=== PATIENT | male | born 1995 | race African-American/Black ===

== ENCOUNTER 2017-11-17 04:18 | Inpatient (IN) | payer OTHER, SELFPAY ==
[2017-11-17] MEDS ORDERED: Senokot 8.6 MG TAB PO PRN (08:52)
[2017-11-17] MEDS ORDERED: Loratadine 10 MG TAB PO PRN (08:52)
[2017-11-17] MEDS ORDERED: Diabetic Tussin 200 MG/10 ML UDCUP PO PRN (08:52)
[2017-11-17] MEDS ORDERED: Acetaminophen 325 MG TAB PO PRN (08:52)
[2017-11-17] MEDS ORDERED: Ondansetron HCl/PF 4 MG/2 ML Vial IVP PRN (08:52)
[2017-11-17] MEDS ORDERED: Loperamide HCl 2 MG CAP PO PRN (08:52)
[2017-11-17] MEDS ORDERED: Zolpidem Tartrate 5 MG TAB PO PRN (08:52)
[2017-11-17] MEDS ORDERED: hydrALAZINE 20 MG/ML VIAL SLOW IVP PRN (08:52)
[2017-11-17] MEDS ORDERED: Artificial Tears 18 DROP/0.9 ML EA EYE PRN (08:52)
[2017-11-17] MEDS ORDERED: Sodium Chloride 0.65% Nasal 44 ML BOT EA NARE PRN (08:52)
[2017-11-17] MEDS ORDERED: Ondansetron ODT 4 MG TAB PO PRN (08:52)
[2017-11-17] MEDS ORDERED: HYDROcodone/Acetaminophen 5/325 mg Tablet PO PRN (08:52)
[2017-11-17] MEDS ORDERED: Eucerin (Mineral Oil/Petrolatum,White) 30 gm Jar TOP PRN (08:52)
[2017-11-17] MEDS ORDERED: Chloraseptic Spray 180 ml Bottle PO PRN (08:52)
[2017-11-17] MEDS ORDERED: Albuterol Sulfate 2.5 mg/3 ml Neb NEB PRN (08:52)
[2017-11-17] MEDS ORDERED: Mag-Al 1200 mg/1200 mg/30 ML UDCUP PO PRN (08:52)
[2017-11-17] MEDS ORDERED: Milk Of Magnesia 30 ML UDCUP PO PRN (08:52)
[2017-11-17] MEDS ORDERED: Cefepime 2 GM in Sodium Chloride 0.9% 100 ML IVPB SCH (09:00)
[2017-11-17] MEDS ORDERED: Famotidine 20 MG TAB PO SCH (09:00)
[2017-11-17 09:52] VITALS: BMI 19.5
[2017-11-17] MEDS ORDERED: Cefepime 2 GM, Syringe 2.5 ML in Sterile Water 10 ML SLOW IVP SCH (10:00)
[2017-11-17] MEDS: Enoxaparin Sodium 40 MG/0.4 ML SYRINGE SC SCH (10:30)
[2017-11-17] MEDS: Sodium Chloride 0.9% 1,000 ML IV SCH (10:31)
[2017-11-17] MEDS ORDERED: Lidocaine 2% Jelly 5 ML TUBE TOP SCH (10:45)
[2017-11-17 10:53] LABS: #Lymphocytes 1.5 thou/uL (1.20-3.40); #Monocytes 0.1 thou/uL (0.11-0.59); #Neutrophils 5.8 thou/uL (1.40-6.50); %Basophils 0.2 % (0.0-1.0); %Eosinophils 0.2 % (0.0-10.0); %Lymphocytes 20.5 % (21.0-51.0); %Monocytes 1.4 % (0.0-10.0); %Neutrophils 77.7 % (42.0-75.0); Band 1 % (5-11); Hemoglobin 15.8 g/dL (14.0-18.0); Lymphocytes 16 % (21-51); MDiff Complete? YES; Macrocytosis SLIGHT = 6-15 cells (100X) (0-5/hpf); Mean Corpuscular HGB CONC 33.1 g/dL (32.0-36.0); Mean Corpuscular Hemoglobin 35.7 pg (27.0-31.0); Mean Platelet Volume 8.1 fL (7.4-10.4); Monocytes 2 % (0-10); Neutrophil 72 % (42-75); PLT Morphology Comment Appears Adequate; Platelet Count 214 thou/uL (130-400); RBC Distribution Width 13.9 % (11.5-14.5); Reactive Lymphocytes 9 % (0-10); Red Blood Cell (RBC) Count 4.43 mill/uL (4.70-6.10); White Blood Cell (WBC) Count 7.5 thou/uL (4.8-10.8)
[2017-11-17 11:35] LABS: ALT (SGPT) 21 U/L (8-55); AST (SGOT) 27 U/L (5-34); Albumin 4.4 g/dL (3.5-5.0); Alkaline Phosphatase 81 U/L (40-150); Anion Gap 12 mmol/L (10-20); BUN (Urea Nitrogen) 12 mg/dL (8.9-20.6); Bilirubin, Total 0.5 mg/dL (0.2-1.2); Calc. Creatinine Clearance 111 mL/min (70-130); Calcium 10.1 mg/dL (7.8-10.44); Carbon Dioxide 36 mmol/L (22-29); Chloride 97 mmol/L (98-107); Estimated GFR-MDRD Greater than 90; Globulin 3.9 g/dL (2.4-3.5); Glucose 113 mg/dL (70-105); Potassium 5.3 mmol/L (3.5-5.1); Protein, Total 8.3 g/dL (6.0-8.3); Sodium 140 mmol/L (136-145)
[2017-11-17] MEDS ORDERED: FLU VACC QS2017-18 36 mo. & older 0.5 ML SYRINGE IM ONE (12:00)
[2017-11-17] MEDS ORDERED: Fentanyl 100 MCG/2 ML VIAL ONE (12:14)
[2017-11-17] MEDS ORDERED: Propofol 500 MG/50 ML VIAL ONE (12:14)
[2017-11-17] MEDS ORDERED: EPINEPHrine 1 MG/ML AMP ONE (12:17)
[2017-11-17] MEDS ORDERED: Lidocaine 4% Topical Sol 50 ML BOT ONE ×2 (12:18→12:43)
[2017-11-17] MEDS ORDERED: Midazolam HCl 5 mg/5 ml Vial ONE (12:27)
[2017-11-17] MEDS ORDERED: Ketamine 50 MG/ML VIAL ONE (12:27)
[2017-11-17] MEDS ORDERED: Thrombin 20 THOU.UNITS/20 ML VIAL ONE (13:45)
[2017-11-17] MEDS ORDERED: Thrombin 5000 UNITS/5 ML VIAL ONE (13:46)
[2017-11-17] MEDS ORDERED: Multivit, Adult Inj 10 ML VIAL IV SCH (14:00)
[2017-11-17] MEDS ORDERED: Multivitamins, Adult 10 ML in Sodium Chloride 0.9% 500 ML IV SCH ×2 (14:15)
[2017-11-17] MEDS ORDERED: SUGAMMADEX SODIUM 200 MG/2 ML VIAL ONE (14:23)
[2017-11-17] MEDS ORDERED: Naloxone HCl 0.4 mg/ml Vial ONE ×2 (14:29→15:07)
--- NOTE | 2017-11-17 14:43 | HP ---
PRIMARY CARE PHYSICIAN: Patient is a city call admission. The patient is transferred from [facility] for further evaluation. REASON FOR ADMISSION: Transfer from [facility] for pneumonia, papillary tumor of v ocal cord. HISTORY OF PRESENT ILLNESS: A 22-year-old -[place] male who has history of vocal cord papill madiha tumor as well as asthma. He went to emergency room there for generalized fatigue, wheezing, weak ness, shortness of breath, cough with productive yellowish-white sputum. These symptoms are ongoing slowly for about a month, but lately for the last one week, the patient's symptomatology has gotten w orse. He feels chest tightness. He feels shortness of breath. He feels wheezing. He feels subject delilah fever, but no chills. Denies any body ache. He does have nasal congestion, but no sore throat. When he went to [facility], he was slightly hypoxic. The patient was otherw ise hemodynamically stable. His saturation was 91%. He had routine blood tests there which were com pletely unremarkable including CBC, BMP, and LFT. His chest x-ray showed rounded opacity of left pos terior mid lung zone and there was concern of underlying pneumonia. Subsequently, the patient had CT neck, soft tissue, and CT chest which showed soft tissue mass on both vocal cords causing narrowing of laryngeal airway and CT chest showed multiple cavitary nodule on both lungs with left lower lobe c onsolidation. The patient denies any recent travel. He denies any sick exposure. The patient was transferred to our hospital. At that time, the patient was tachycardic. He was satu rating normal on room air. Site Administrator and ENT were consulted. The patient was subsequently admit chip in IICU. When I saw this patient at that time, patient was comfortable, but he was complaining that he has dif ficulty talking sometimes and he has difficulty phonating as well and that for the last month, the pa tient is gradually getting worse. The patient has a history of papilloma and he requires several maryanne es papilloma removed since age of 4 years. REVIEW OF SYSTEMS: The following complete review of systems was negative, unless otherwise mentioned in the HPI or below: Constitutional: Weight loss or gain, ability to conduct usual activities. Skin: Rash, itching. Eyes: Double vision, pain. ENT/Mouth: Nose bleeding, neck stiffness, pain, tenderness. Cardiovascular: Palpitations, dyspnea on exertion, orthopnea. Respiratory: Shortness of breath, wheezing, cough, hemoptysis, fever or night sweats. Gastrointestinal: Poor appetite, abdominal pain, heartburn, nausea, vomiting, constipation, or diarr hea. Genitourinary: Urgency, frequency, dysuria, nocturia. Musculoskeletal: Pain, swelling. Neurologic/Psychiatric: Anxiety, depression. Allergy/Immunologic: Skin rash, bleeding tendency. Please see my HPI for pertinent positives and negatives. All other review of systems reviewed and ne gative except as mentioned in the HPI. ALLERGIES: No known drug allergies. CURRENT HOME MEDICATIONS: The patient is not taking prescribed or non-prescribed medication. 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 PAST SURGICAL HISTORY: Several times papilloma tumor removed from vocal cord. PAST PSYCHIATRIC HISTORY: Reviewed and negative. SOCIAL HISTORY: Patient drinks alcohol almost every week, but he denies any smoking. He denies any other illicit drug abuse. He lives by himself. FAMILY HISTORY: No strong family history of premature coronary artery disease, stroke, or cancer. EMERGENCY ROOM COURSE: Reviewed. PHYSICAL EXAMINATION: VITAL SIGNS: On arrival, blood pressure 137/85, pulse 110, respiratory rate 20, temperature 97.8, sa turation 94% on room air, weight 65.7 kg. GENERAL: Patient is currently alert, awake on room air. No obvious acute distress, able to talk in full sentences. HEENT: Head is normocephalic and atraumatic. Eyes: Pupils are round and reactive to light. Extrao cular muscles are intact. ENT: Oropharynx within normal limits. Moist mucous membranes. No oral l esions. No pharyngeal erythema, no exudate. NECK: Supple. No JVD, no thyromegaly, no carotid bruit, no meningeal signs of irritation. LUNGS: Coarse breath sounds, but no rhonchi, no wheeze. No accessory muscles of respiration. No in tercostal retractions. CARDIAC: S1 and S2 regular, tachycardia. No murmur, no gallop, no rub. ABDOMEN: Soft, bowel sounds present. Nontender, nondistended. No organomegaly. No mass. No supra pubic tenderness. BACK: Unremarkable, no CVA tenderness. EXTREMITIES: Upper extremities: Passive movement of all joints are normal. Lower extremities: No edema. Good peripheral pulsation. SKIN: No skin rash. HEMATOLOGICAL: No lymphadenopathy. PSYCHIATRIC: Normal affect. SIGNIFICANT LABS: Blood tests done at [facility] completely reviewed including CT scan. The patient has a 2.4 cm thin walled cavitary focus in the right upper lobe variable size thin -walled cavitary foci within right upper lobe and left lower lobe as well as the right middle lobe an d right lower lobe, bronchiectasis and bronchial wall thickening in left lower lobe, left lower lobe consolidation. The patient also has irregular soft tissue mass in both vocal cords. CBC: WBC 7.5, hemoglobin 15.8, MCV 108, platelets 214 with bandemia. BMP: Sodium 140, potassium 5. 3, chloride 97, carbon dioxide 36, anion gap 12, BUN 12, creatinine 0.93, glucose 113, calcium 10.1. LFT: AST 27, ALT 21, alkaline phosphatase 81, albumin 4.4. ASSESSMENT AND PLAN: 1. Bilateral vocal cord papillary tumor. At this point, the patient is having dyspnea, most likely related with that. ENT doctor is consulted and further decisions will defer to them. 2. Bilateral cavitary pulmonary nodule, multiple. Differential diagnoses is infectious etiology, We gener's granulomatosis, fungal infection. Pulmonary will be consulted and they will decide whether t his patient need any bronchoscopy or any further evaluation or not. Considering infection, we will s tart broad spectrum antibiotic therapy. 3. Left lower lobe pneumonia/bronchiectasis. The patient will be started on broad spectrum antibiot ic therapy with cefepime, Levaquin, or vancomycin if pulmonary okay. Doubt this patient has any infe ction, most likely related with noninfectious process, but we will closely monitor. 4. Asthma. The patient will be given albuterol nebulization therapy. 5. Macrocytosis. The patient will be given multivitamin therapy IV along with IV fluid. 6. Deep venous thrombosis prophylaxis. SCD boots. Lovenox 40 mg subcutaneously daily. 7. Gastrointestinal prophylaxis. Pepcid 20 mg IV b.i.d. 8. Code status: The patient is FULL CODE. The patient does not have a surrogate decision maker. Disposition plan based on clinical course. We are expecting patient's stay in hospital more than 2 m idnights. Plan of care discussed with the patient in detail.
--- NOTE | 2017-11-17 15:04 | CON ---
DATE OF CONSULTATION: 11/17/2017 SERVICE: Pulmonary Medicine. REASON FOR CONSULTATION: ICU patient. HISTORY OF PRESENT ILLNESS: The patient is a 22-year-old -Monegas[place] male with past medical his tory significant for recurrent papillomas of the laryngeal region. He has had a couple of operations in the past, because of upper airway issues. His last surgery was multiple years ago. He had progr essive increasing difficulty with breathing. 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 All o f his other physicians are in the [place] area that previously took care of him. Because he was in [facility] and is having difficulty and there was no ability to transfer him to [place], he was subseq uently sent here. He was tucked into the ICU overnight. There were some films that were done in the outside facility and we have the reports for review, but none of the images were sent because the rner was down. The patient other than his stridor, and difficulty with moving air, is otherwise with out any symptoms of fevers, chills, nausea, vomiting, cough or sputum production. He is otherwise in his usual state of health and has no specific complaints. He does have retractions with inspiration and has prolonged expiratory phase. I had him sniff aggressively and there was no significant impro vement in his inspiratory phase. PAST MEDICAL HISTORY: 1. Recurrent papillomas of the larynx. 2. Asthma. PAST SURGICAL HISTORY: Laryngeal procedures for excision of papillomas, recurrent. SOCIAL HISTORY: Negative for significant alcohol, tobacco or illicit drug use. He has no exposure t o chemicals, doses, asbestos or tuberculosis. FAMILY HISTORY: Noncontributory. ALLERGIES: No known drug allergies. MEDICATIONS: List of his inpatient medications were reviewed. Couple of small updates were made. REVIEW OF SYSTEMS: General, head, ears, eyes, nose, throat, cardiovascular, respiratory, GI, , mus culoskeletal, neurologic and skin is negative except as mentioned in the HPI. PHYSICAL EXAMINATION: VITAL SIGNS: Afebrile, pulse 106, blood pressure 112/80, respirations 23, saturation 100% on 2 liter s nasal cannula. GENERAL: Patient is awake, alert, in no apparent distress. LUNGS: He has a prolonged expiratory and inspiratory phase. Aggressive sniffing does not improve hi s inspiratory phase significantly. He is not moving enough air to appreciate adventitious sounds, th ough I get the feeling that not present. HEART: Normal rate, regular. ABDOMEN: Soft, nontender, nondistended. Bowel sounds are positive. MUSCULOSKELETAL: No cyanosis or clubbing. There is no pitting in the bilateral lower extremities. IMAGING: CT reports were reviewed of the neck, and of the chest. There are multiple cavitary lesion s, mass-like lesions, and pulmonary nodules present throughout the bilateral lung juarez. The CT of the neck was reviewed and they did not specifically note any significant growths in the laryngeal reg ion. ASSESSMENT: 1. Stridor. 2. History of papilloma tumors that required previous surgical interventions. 3. Abnormal CT of the chest including pulmonary cavities, nodules, masses, and cystic lesions. 4. History of asthma without current exacerbation. PLAN: ENT consultation has been placed. The patient will likely need to undergo an evaluation of th e larynx in the operating room. The CT of the neck did not specifically demonstrate any soft tissue growths in this region, so vocal cord dysfunction is a distinct possibility, but I feel a cautious ap proach is still indicated. CPAP will be initiated to see if this improves the air movement. Once hi s upper airway issue gets evaluated and stabilized, the patient can be considered for workup of the m ultiple pulmonary findings. I would likely defer this to the outpatient setting. 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 Pulmonary and Critical Care will continue to follow.
[2017-11-17] MEDS ORDERED: Propofol 200 MG/20 ML VIAL ONE (15:07)
[2017-11-17] MEDS ORDERED: Ondansetron HCl/PF 4 MG/2 ML Vial ONE (15:07)
[2017-11-17] MEDS ORDERED: Succinylcholine Chloride 20 MG/ML 10 ml SYRINGE FS ONE (15:07)
[2017-11-17] MEDS ORDERED: PHENYLEPHRINE-NS 100 MCG/ML 10 ML SYRINGE ONE (15:07)
[2017-11-17] MEDS ORDERED: Lidocaine 1% PF 5 ML VIAL ONE (15:07)
[2017-11-17] MEDS ORDERED: Glycopyrrolate 0.2 MG/ML 5 ML SYRINGE ONE (15:07)
--- NOTE | 2017-11-17 16:31 | OP ---
PREOPERATIVE DIAGNOSES: 1. Obstructive laryngeal lesion. 2. Personal history of recurrent respiratory papillomatosis. POSTOPERATIVE DIAGNOSIS: Recurrent respiratory papillomas. PROCEDURES PERFORMED: 1. Microsuspension laryngoscopy with biopsy and microdebridor destruction of removal of obstructing laryngeal lesion. 2. Rigid bronchoscopy. PROCEDURE IN DETAIL: After patient was identified, brought to the operating room and placed in field in supine position. General endotracheal anesthesia was obtained using a small endotracheal tube an d the patient was positioned for surgery. The laryngeal larynx was examined and found the entire lar yngeal inlet was filled with respiratory papillomas causing near complete obstruction. The patient w as in significant airway compromise and the endotracheal tube was passed and the patient was . We then under microscopic visualization, was able to debride and remove the obstructive laryngeal le sions using the [employer] microdebrider. Caution was made not to injure the underlying laryngeal str uctures, the subglottic space, trachea and down to the airam was examined and there were soft tissue involvement apparently at mid tracheal region. This was done with rigid bronchoscopy. Because the patient had been on some blood thinners, we sprayed some thrombin on the vocal cords and subsequently suctioned that to facilitate hemostasis and we also treated with topical lidocaine. The patient was ultimately awakened, extubated, and taken to recovery where she remained in stable condition. Prior to discharge home, the patient will need to continually worked up because there was a finding concur rently of bilateral pulmonary masses suspicious for metastatic disease. Biopsy was obtained of obstr uctive laryngeal lesion to rule out malignant transformation.
[2017-11-17] MEDS: Famotidine/PF 20 mg/2ml Vial SLOW IVP SCH (20:52)
[2017-11-18] MEDS: Sodium Chloride 0.9% 1,000 ML IV SCH (01:44)
[2017-11-18 05:46] LABS: Bilirubin Negative (Negative); Blood, Urine Negative (Negative); Clarity CLEAR (Clear); Glucose, Urine (Dipstick) Negative (Negative); Leukocyte Negative (Negative); Nitrite Negative (Negative); Protein, Urine (Dipstick) Negative (Neg-Trace); Specific Gravity, Urine 1.025 (1.002-1.036)
[2017-11-18 05:48] LABS: Bacteria/HPF None Seen HPF (None Seen); Hyaline Casts/LPF 0-3 HYALINE CAST LPF (0-3 Hyaline); RBC/HPF 0-3 HPF (0-3); Squamous Epithelial None Seen HPF (0-3)
[2017-11-18] MEDS: Enoxaparin Sodium 40 MG/0.4 ML SYRINGE SC SCH (09:01)
[2017-11-18] MEDS: Famotidine/PF 20 mg/2ml Vial SLOW IVP SCH ×2 (09:01→21:28)
[2017-11-18 09:02] LABS: #Lymphocytes 2.9 thou/uL (1.20-3.40); #Monocytes 0.6 thou/uL (0.11-0.59); %Basophils 0.4 % (0.0-1.0); %Eosinophils 0.2 % (0.0-10.0); %Lymphocytes 27.6 % (21.0-51.0); %Monocytes 5.5 % (0.0-10.0); %Neutrophils 66.3 % (42.0-75.0); Hemoglobin 13.8 g/dL (14.0-18.0); Mean Corpuscular HGB CONC 32.7 g/dL (32.0-36.0); Mean Corpuscular Hemoglobin 34.9 pg (27.0-31.0); Mean Platelet Volume 7.9 fL (7.4-10.4); Platelet Count 199 thou/uL (130-400); RBC Distribution Width 13.6 % (11.5-14.5); Red Blood Cell (RBC) Count 3.95 mill/uL (4.70-6.10); White Blood Cell (WBC) Count 10.5 thou/uL (4.8-10.8)
[2017-11-18 09:25] LABS: BUN (Urea Nitrogen) 14 mg/dL (8.9-20.6); Calc. Creatinine Clearance 122 mL/min (70-130); Estimated GFR-MDRD Greater than 90; Glucose 163 mg/dL (70-105)
[2017-11-18 09:34] LABS: Anion Gap 8 mmol/L (10-20); Carbon Dioxide 36 mmol/L (22-29); Chloride 99 mmol/L (98-107); Potassium 3.6 mmol/L (3.5-5.1); Sodium 139 mmol/L (136-145)
--- NOTE | 2017-11-18 10:58 | PDOC.PN ---
- Subjective Encounter Start Date: 11/18/17 Encounter Start Time: 09:10 -: old records requested/rev Patient seen and examined. No new complaints. No overnight events no respiratory distress, has soft voice, no fever - Objective Resuscitation Status: Resuscitation Status FULL:Full Resuscitation MAR Reviewed: Yes Vital Signs & Weight: Vital Signs (12 hours) Temp Pulse Resp BP Pulse Ox 11/18/17 10:21 98 F 86 18 119/67 94 L 11/18/17 10:11 99.4 F 86 18 94 L 11/18/17 08:00 99.4 F 86 18 94 L 11/18/17 07:46 99.4 F 86 18 116/66 94 L 11/18/17 05:24 98.3 F 90 18 106/56 L 95 11/18/17 00:18 108 H 20 112/58 L 95 Weight Weight 137 lb 9.6 oz Most Recent Monitor Data Heart Rate from ECG 102 NIBP 116/76 NIBP BP-Mean 90 Respiration from ECG 20 SpO2 93 I&O: 11/17/17 11/18/17 11/19/17 06:59 06:59 06:59 Intake Total 1618 240 Output Total 1375 Balance 243 240 Result Diagrams: 11/18/17 08:53 11/18/17 08:53 Radiology Reviewed by me: Yes (CT chest) EKG Reviewed by me: Yes (NSR) Phys Exam - Physical Examination Constitutional: NAD HEENT: PERRLA, moist MMs, sclera anicteric Neck: no JVD, supple Respiratory: no wheezing, no rales, no rhonchi Cardiovascular: RRR, no significant murmur, no rub Gastrointestinal: soft, non-tender, no distention, positive bowel sounds Musculoskeletal: no edema, pulses present Neurological: non-focal, normal sensation Lymphatic: no nodes Psychiatric: normal affect, A&O x 3 Skin: no rash, normal turgor Dx/Plan (1) Cavitary lesion of lung Code(s): J98.4 - OTHER DISORDERS OF LUNG Status: Acute (2) Consolidation lung Code(s): J18.1 - LOBAR PNEUMONIA, UNSPECIFIED ORGANISM Status: Acute (3) Asthma Code(s): J45.909 - UNSPECIFIED ASTHMA, UNCOMPLICATED Status: Chronic (4) Benign neoplasm of vocal cord Code(s): D14.1 - BENIGN NEOPLASM OF LARYNX Status: Chronic (5) Macrocytosis Code(s): D75.89 - OTHER SPECIFIED DISEASES OF BLOOD AND BLOOD-FORMING ORGANS Status: Chronic - Plan cont current plan of care * s/p laryngoscopy * he will need bronchoscopy * today CT chest * Transfer to medical floor * discussed with pulmonary * overall stable * medication reviewed as below * symptomatic treatment. Review of Systems - Review of Systems Constitutional: negative: fever, chills, sweats, weakness, malaise, other Eyes: negative: Pain, Vision Change, Conjunctivae Inflammation, Eyelid Inflammation, Redness, Other ENT: negative: Ear Pain, Ear Discharge, Nose Pain, Nose Discharge, Nose Congestion, Mouth Pain, Mouth Swelling, Throat Pain, Throat Swelling, Other Respiratory: Cough. negative: Dry, Shortness of Breath, Hemoptysis, SOB with Excertion, Pleuritic Pain, Sputum, Wheezing Cardiovascular: negative: chest pain, palpitations, orthopnea, paroxysmal nocturnal dyspnea, edema, light headedness, other Gastrointestinal: negative: Nausea, Vomiting, Abdominal Pain, Diarrhea, Constipation, Melena, Hematochezia, Other Genitourinary: negative: Dysuria, Frequency, Incontinence, Hematuria, Retention , Other Musculoskeletal: negative: Neck Pain, Shoulder Pain, Arm Pain, Back Pain, Hand Pain, Leg Pain, Foot Pain, Other Skin: negative: Rash, Lesions, Mont[place], Bruising, Other - Medications/Allergies Allergies/Adverse Reactions: Allergies Allergy/AdvReac Type Severity Reaction Status Date / Time No Known Drug Allergies Allergy Verified 11/17/17 09:04 Medications: Current Medications Acetaminophen (Tylenol) 650 mg PO Q4H PRN PRN Reason: Headache/Fever or Pain Hydrocodone Bitart/Acetaminophen (Matheson 5/325) 1 tab PO Q4H PRN PRN Reason: Moderate Pain (4-6) Al Hydroxide/Mg Hydroxide (Maalox) 30 ml PO Q6H PRN PRN Reason: Heartburn or Indigestion Albuterol Sulfate (Ventolin) 2.5 mg NEB [id number] PRN PRN Reason: Wheezing Artificial Tears (Tears Naturale) 0 drop EA EYE PRN PRN PRN Reason: Dry Eyes Enoxaparin Sodium (Lovenox) 40 mg SC 0900 VERONIKA Last Admin: 11/18/17 09:01 Dose: 40 mg Famotidine (Pepcid) 20 mg SLOW IVP BID VERONIKA Last Admin: 11/18/17 09:01 Dose: 20 mg Guaifenesin (Robitussin Sf) 200 mg PO Q4H PRN PRN Reason: Cough Hydralazine HCl (Apresoline) 10 mg SLOW IVP Q4H PRN PRN Reason: Systolic BP > 180 Loperamide HCl (Imodium) 2 mg PO PRN PRN PRN Reason: Diarrhea/Loose Stools Loratadine (Claritin) 10 mg PO DAILYPRN PRN PRN Reason: Sinus Symptoms Magnesium Hydroxide (Milk Of Magnesium) 30 ml PO DAILYPRN PRN PRN Reason: Constipation Mineral Oil/White Petrolatum (Eucerin Cream) 0 gm TOP BIDPRN PRN PRN Reason: Dry Skin Ondansetron HCl (Zofran Odt) 4 mg PO Q6H PRN PRN Reason: Nausea/Vomiting Ondansetron HCl (Zofran) 4 mg IVP Q6H PRN PRN Reason: Nausea/Vomiting Phenol (Chloraseptic Monon 180 Ml Bot) 0 ml PO PRN PRN PRN Reason: Sore Throat Senna (Senokot) 2 tab PO HSPRN PRN PRN Reason: Constipation Sodium Chloride ([place] Nasal Monon 0.65%) 0 ml EA NARE QIDPRN PRN PRN Reason: Nasal Congestion Sodium Chloride (Flush - Normal Saline) 10 ml IVF Q12HR VERONIKA Sodium Chloride (Flush - Normal Saline) 10 ml IVF PRN PRN PRN Reason: Saline Flush Zolpidem Tartrate (Ambien) 5 mg PO HSPRN PRN PRN Reason: Insomnia
[2017-11-18] MEDS ORDERED: Amoxicillin/Potassium Clav 875 MG TAB PO SCH ×2 (11:15→21:00)
--- NOTE | 2017-11-18 11:25 | PRG ---
DATE OF SERVICE: 11/18/2017 SERVICE: Pulmonary Medicine. INTERVAL HISTORY: The patient is doing fine from a respiratory standpoint. He is breathing much bet ter today. He denies any current fevers, chills, shortness of breath or chest discomfort. He has a little bit of hoarseness, but otherwise, he does not have any specific complaints. PHYSICAL EXAMINATION: VITAL SIGNS: Afebrile with T-max of 99.4, pulse 86, blood pressure 119/67, respirations 18, saturati on 94% on room air. GENERAL: Patient is awake, alert, no apparent distress. LUNGS: Decent air entry. Rhonchi are present at the left base. Otherwise, there is no prolonged ex piratory phase or wheezing. HEART: Normal rate, regular. ABDOMEN: Soft, nontender, nondistended, bowel sounds positive. MUSCULOSKELETAL: No cyanosis or clubbing. No pitting in the bilateral lower extremities. NEUROLOGIC: Grossly nonfocal. LABORATORY DATA: CBC is grossly unremarkable. Basic metabolic profile is also unremarkable except f or bicarbonate of 36. Urinalysis is negative. IMAGING: CT of the chest demonstrates multiple cystic and some larger walled cysts and borderline ca vities scattered throughout the bilateral lung juarez. There is also an infiltrative lesion in the l eft lower lobe. This is in the posterior segment of that location. There is a nodular/mass like com ponent to part of that peripheral area. ASSESSMENT: 1. Recurrent laryngeal papillomatosis. 2. Stridor, resolved. 3. Abnormal CT of the chest including cavities, cysts, and left lower lobe infiltrate that has a com ponent that appears mass-like. 4. History of asthma without current exacerbation. DISCUSSION AND PLAN: The patient is now breathing very comfortably. The CT of the chest is probably consistent with an infection. Whether or not there is an underlying mass, I really cannot comment o n, but the patient really did not have enough cough to clear his airway secretion and stands to reaso n that this could be an infectious process in the left lower lobe. As such, I will put him on 2 week s of Augmentin. I will have him return to clinic in the outpatient setting in 4-6 weeks for the repe at CT scan of the chest. At that point, if the mass persists, additional diagnostic studies may be c onsidered. I am hopeful that we are not dealing with malignant transformation of the papillomatosis, but this is a distinct possibility. Additionally, the cystic lesions will need to be worked up sepa rately. Pulmonary and Critical Care will continue to follow. From my perspective, he can be transit ioned to the medical unit today.
[2017-11-18] MEDS ORDERED: ISOVUE-370 76%-LOCM 1 ML ONE (12:40)
--- NOTE | 2017-11-18 12:59 | CT ---
CT CHEST WITH IV CONTRAST: HISTORY: Chest mass, difficulty breathing. FINDINGS: No mediastinal, hilar, or axillary mass or lymphadenopathy seen. No pleural or pericardial effusions are identified. There is focal area of mass-like consolidation in the left lower lobe. There are multiple bilateral cysts, some thick-walled, some thin-walled, and some with a cavitary appearance and one with a cavita ry appearance in the right lower lobe measuring about 15 mm. No pneumothoraces are seen. No acute o sseous abnormalities are seen. IMPRESSION: 1. Mass-like consolidative change in the left lower lobe may be due to infection or neoplasm. Furth er evaluation with bronchoscopy is recommended. 2. Cystic lesions in the lungs may be either due to infection or eosinophilic granulomas. POS: [facility]
[2017-11-18 21:15] VITALS: BP 111/59; TEMP 99
--- NOTE | 2017-11-18 21:54 | DIS ---
DATE OF ADMISSION: 11/17/2017 DATE OF DISCHARGE: 11/18/2017 PRIMARY CARE PHYSICIAN: [facility] call admission. DISCHARGE DISPOSITION: Home. PRIMARY DISCHARGE DIAGNOSES: 1. Cavitary lesion of lung. 2. Consolidation of lung. 3. Benign neoplasm of vocal cord. SECONDARY DISCHARGE DIAGNOSES: Macrocytosis due to alcohol use, asthma, papilloma of vocal cord. PRIMARY PROCEDURE/OPERATION: Laryngoscopy and biopsy of papilloma of vocal cord. RADIOLOGICAL INVESTIGATION: CT chest was done while in hospital, which showed mass-like consolidativ e changes in left lower lobe. Cystic changes in the lung. SIGNIFICANT LABORATORIES: WBC 10.5, hemoglobin 13.8, MCV 107, platelets 199. Sodium 139, potassium 3.6, BUN 14, creatinine 0.83, calcium 9.0. LFTs normal. Urinalysis normal. DISCHARGE MEDICATIONS: Augmentin 875 mg twice daily for 2 weeks, Proventil HFA 2 puffs q.6 hourly p. r.n., Florastor 250 mg p.o. daily for 2 weeks. CONTRAINDICATIONS: None. CODE STATUS: FULL CODE. INPATIENT CONSULTANTS: Dr. Pablo Sultana was consulted, who did laryngoscopy and biopsy. 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 Dr. Sun consulted i chary in hospital, and he recommended to change to Augmentin and follow up with him as an outpatient bas is and repeat CT scan in 1 month. TEST RESULTS PENDING ON DISCHARGE: None. ALLERGIES: No known drug allergy. DISCHARGE PLAN: Post hospital, the patient will follow up with primary care physician, Dr. Pablo santana, and Dr. Sun as instructed. HOSPITAL COURSE: This is a 22-year-old male, who has papilloma of vocal cord for the last several ye ars, required intermittent resection. This time he was having difficulty talking and difficulty justen thing with stridor. He went to [facility] where they did CT neck and CT chest. Patie nt had enlarging papilloma of around both vocal cord and he was also found with a cystic lesion in haley th lungs and consolidative changes in the left lower lobe. He was transferred to our hospital. He w as admitted overnight in ICU. Dr. Sun and Dr. Sultana were consulted. After that, patient was tr ansferred to [facility], and next day we transferred him to medical floor. Dr. Sultana did laryngoscopy and biopsy was obtained, and biopsy report was consistent with papilloma with HPV changes. Dr. Sun did a repeat CT chest, which showed similar finding. Dr. Sun recommended to change to Augmentin for 15 days and he will follow up with the patient as an outpatient basis. The patient was keen to go home today. I spent a total of more than 30 minutes to coordinate this di nilda. The patient is seen and examined at bedside today. Please see my progress note from today for furthe r details. Total time spent on discharge day more than 30 minutes.
== END 2017-11-18 23:25 | disposition home or self-care (01) | DRG 133 ==
LOC: ERS 04:18 → ERHOLD 05:39 → CCU 09:01 → IMCU/EMU 21:31 → 3SE 11-18 10:10
PROVIDERS: ADMIT Family Medicine; ATTEND Family Medicine
PROC: 0CBS8ZX Excision of Larynx, Via Natural or Artificial Opening Endoscopic, Diagnostic (ICD-10-PCS; principal; 2017-11-17)
PROC: 0C5S8ZZ Destruction of Larynx, Via Natural or Artificial Opening Endoscopic (ICD-10-PCS; 2017-11-17)
PROC: 0BJ08ZZ Inspection of Tracheobronchial Tree, Via Natural or Artificial Opening Endoscopic (ICD-10-PCS; 2017-11-17)
DX: D14.1 Benign neoplasm of larynx (principal); J18.1 Lobar pneumonia, unspecified organism; J47.0 Bronchiectasis with acute lower respiratory infection; J98.4 Other disorders of lung; J45.909 Unspecified asthma, uncomplicated; D75.89 Other specified diseases of blood and blood-forming organs
CPT/HCPCS: 36415; 71260; 80048; 80053; 81001; 85025; 88305; A4216; J0171; J0692; J1650; J2001; J2250; J2310; J2405; J2704; J3010; J7050; S0028